=== PATIENT | male | born 1950 | race Caucasian/White ===

== ENCOUNTER 2024-03-23 18:57 | Inpatient (IN) | payer MEDICARE, OTHER, SELFPAY ==
[2024-03-23] VITALS (17 sets, daily range): BP systolic 107–168; BP diastolic 36–135; BMI 22.9; BMI 22.8
--- NOTE | 2024-03-23 17:04 | ED.GENMED ---
History of Present Illness
<Glo Briones MD, Resident - Last Filed: 03/23/24 17:54>
General
Chief Complaint: Cardiac Symptoms
Time Seen by Provider: 03/23/24 16:25
History of Present Illness
History of Present Illness:
This is a 73-year-old man who presented to the ED from his PCP with an EKG reading of a second-degree heart block. The patient reports feeling weak and experiencing decreased strength since September, with a significant decline in the past month he
mentioned that he is unable to carry 4 gallons of water and ' feels winded' while climbing stairs. Heart rate in the ED is 36. Sinus bradycardia on exam. EKG in ED shows a second-degree heart block and lab work which is currently in process.
Patient is not on any beta-blockers. He has no history of hypertension, diabetes, hyperlipidemia, CAD, stroke. Patient also complains of claudication in both calves while climbing stairs ongoing for past month. He is only on Viagra for ED, no other
medications.
Past History
<Glo Briones MD, Resident - Last Filed: 03/23/24 17:54>
Past History
ED Past Medical History: None
ED Past Surgical History: Other (hernia repair)
Social History
Tobacco: Non-smoker
Alcohol: None
Drug: None
Personal:
Living: with family
Employment: Employed
Phy Exam
<Glo Briones MD, Resident - Last Filed: 03/23/24 17:54>
Physical Exam
Physical Exam:
73-year-old healthy male comfortably laying in bed, is conversant in no acute distress,
Cardiovascular Exam
Cardiovascular Exam: no gallop, no murmur and bradycardia
Pulmonary Exam
Pulmonary Exam: lungs clear
Gastrointestinal Exam
Gastrointestinal Exam: normal bowel sounds, non tender, soft and non distended
Neurological Exam
Neurological Exam: alert and oriented x3
Psychiatric Exam
Psychiatric Exam: normal mood/affect
Course
<Glo Briones MD, Resident - Last Filed: 03/23/24 17:54>
Orders/Labs/Results
Orders:
Orders
03/23/24 16:05
Electrocardiogram (*1) Urgent
Reason for Study: Chest Pain
EKG- Treatment ONCE
03/23/24 16:58
Complete Blood Count/No Diff Urgent
Comprehensive Metabolic Panel Urgent
Magnesium Urgent
TSH Reflex To Free T4 Urgent
Troponin I Urgent
03/24/24 06:00
Echo 2D MMode Color/Doppler IN AM
Reason for Study: Bradycardia
NPO
Allow oral meds: Yes
Allow clear liquids: No
NPO for procedure after (time): Possible PPM
Abnormal Lab Results
03/23/24
16:58
MPV 11.3 H fL
(7.4-10.4)
BUN 28 H mg/dl
(9-20)
03/23/24 16:58
03/23/24 16:58
Vital Signs
Initial and Last Documented VS:
Initial Vital Signs
Temp Pulse Resp BP Pulse Ox
98.7 F 42 16 168/69 97
03/23/24 16:17 03/23/24 16:17 03/23/24 16:17 03/23/24 16:17 03/23/24 16:17
Last Documented Vital Signs
Temp Pulse Resp BP Pulse Ox
98.7 F 35 17 158/70 98
03/23/24 16:17 03/23/24 17:30 03/23/24 17:30 03/23/24 17:30 03/23/24 17:30
<Jet Mcwilliams DO - Last Filed: 03/23/24 17:12>
Orders/Labs/Results
Orders:
Orders
03/23/24 16:05
Electrocardiogram (*1) Urgent
Reason for Study: Chest Pain
EKG- Treatment ONCE
03/23/24 16:58
Complete Blood Count/No Diff Urgent
Comprehensive Metabolic Panel Urgent
Magnesium Urgent
TSH Reflex To Free T4 Urgent
Troponin I Urgent
03/24/24 06:00
Echo 2D MMode Color/Doppler IN AM
Reason for Study: Bradycardia
NPO
Allow oral meds: Yes
Allow clear liquids: No
NPO for procedure after (time): Possible PPM
Abnormal Lab Results
03/23/24
16:58
MPV 11.3 H fL
(7.4-10.4)
BUN 28 H mg/dl
(9-20)
03/23/24 16:58
03/23/24 16:58
Vital Signs
Initial and Last Documented VS:
Initial Vital Signs
Temp Pulse Resp BP Pulse Ox
98.7 F 42 16 168/69 97
03/23/24 16:17 03/23/24 16:17 03/23/24 16:17 03/23/24 16:17 03/23/24 16:17
Last Documented Vital Signs
Temp Pulse Resp BP Pulse Ox
98.7 F 35 17 158/70 98
03/23/24 16:17 03/23/24 17:30 03/23/24 17:30 03/23/24 17:30 03/23/24 17:30
<Glo Briones MD, Resident - Last Filed: 03/23/24 17:54>
*Critical Care Note
Total Time (30-74mins, 75-104mins- exclusive of procedures): Not Applicable
<Glo Briones MD, Resident - Last Filed: 03/23/24 17:54>
Update Note
Update Note:
This is a 73-year-old man who presented to the ED from his PCP with an EKG reading of a second-degree heart block
EKG 03/23/24: SINUS RHYTHM WITH 2ND DEGREE A-V BLOCK WITH 2:1 A-V CONDUCTION
LEFT AXIS DEVIATION. NON-SPECIFIC INTRA-VENTRICULAR CONDUCTION BLOCK
- EKG reviewed myself, constant VA prolongation which states Mobitz type 1 of second degree heart block. Cardiology consulted. Plan is to admit the patient for further workup including an echocardiogram and possible pacemaker placement.
Patient is comfortably lying in bed. He denies any chest pain, shortness of breath.
Heart rate between 35-37. Sinus bradycardia on auscultation.
Defer plan to cardiology
ED Attending Note
<Glo Briones MD, Resident - Last Filed: 03/23/24 17:54>
-
Portions of this chart may have been created with voice recognition software.� Occasional wrong word or��sound alike� substitutions may have occurred due to the inherent limitations of voice recognition software.
<Jet Mcwilliams, DO - Last Filed: 03/23/24 17:12>
ED Attending Note
Patient seen and examined by attending physician: Yes
I performed a history and physical exam of patient and discussed management with resident, I reviewed resident's note and agree with documented findings and plan of care.: Yes
ED Attending Note:
I have seen and evaluated the patient with a [id number] encounter. I have spoken to the resident and involved in the medical history, the physical exam, medical decision making.
Evaluation and management service: agree unless noted differently below.
Results interpretation: agree unless noted differently below.
Focused HPI: 73-year-old male presenting with increased exertion over the past several weeks. He had outpatient follow-up with PCP today and screening EKG was concerning for bradycardia with AV block. Patient denies prior cardiac history
Physical exam: Sitting in bed comfortably. Bradycardic. No murmur
Medical Decision Making: EKG confirms AV block. Will discuss case with cardiology. Given exertional symptoms, will will likely admit. Will obtain basic blood work to rule out any sort of lab abnormalities as the cause. Patient is not on cardiac
medications.
Discharge Plan
Departure
Patient Disposition: Admit
Date of Disposition: 03/23/24
Time of Disposition: 17:53
Presentation/result/management discussed w/ accepting MD/DO: Hospitalist
Patient with high blood pressure during this ER visit?: No
Discharge Problem:
Heart block AV second degree
Prescriptions:
No Action
ascorbic acid (vitamin C) [Vitamin C] 500 MG tablet
1,000 mg PO DAILY
vitamin B complex 1 TAB tablet
1 tab PO DAILY
coenzyme Q10 [Co Q-10] 200 MG capsule
200 mg PO DAILY
cholecalciferol (vitamin D3) 2,000 UNITS tablet
10,000 units PO DAILY
omega 3-psn-zsf-fish oil [Fish Oil] 1,000 MG capsule
1,000 mg PO DAILY
oregano oil 1,500 mg Capsule
1,500 mg PO DAILY
Brain Boost Day
1 tab PO DAILY
Nitric Oxide
1 tab PO DAILY
Viagra
1 tab PO DAILYPRN PRN (Reason: ed)
Zinc Balance
1 tab PO DAILY
magnesium-potassium
1 tab PO DAILY
Referrals:
UNKNOWN - PT DOES,NOT KNOW [Family Provider] -
Interventions
Interventions:
*Risk Screen - Suicide Last Done: 03/23/24 16:17
*General Assessment Last Done: 03/23/24 16:17
*Neglect/Abuse Screening Last Done: 03/23/24 16:17
*ED COVID-19 Vaccine History Last Done: 03/23/24 16:17
ED- Pulmonary Assessment Last Done: 03/23/24 16:43
ED- Cardiac Assessment Last Done: 03/23/24 16:43
Discharge Date and Time
Print Language: KHMER
[2024-03-23 17:05] LABS: Hematocrit 42.5 % (39.0-52.0); Mean Corp Hgb Conc. 35.3 g/dL (33.0-37.0); Mean Corpuscular Hgb 29.8 pg (27.0-31.0); Mean Corpuscular Volume 84.3 fL (80.0-94.0); Mean Platelet Volume 11.3 fL (7.4-10.4); Platelet Count 245 10^3/uL (130-400); Red Blood Cell Count 5.04 10^6/uL (4.70-6.10); Red Cell Dist. Width 14.2 % (11.5-14.5); White Blood Cell Count 8.2 10^3/uL (4.8-10.8)
[2024-03-23 17:29] LABS: ALT (SGPT) 17 U/L (0-50); AST (SGOT) 26 U/L (17-59); Albumin 4.6 g/dl (3.5-5.0); Alkaline Phosphatase 58 U/L (38-126); Blood Urea Nitrogen 28 mg/dl (9-20); Carbon Dioxide 25 mmol/L (22-30); Chloride 106 mmol/L (98-107); Estimated Creatinine Clearance 54 ml/min; Glucose 88 mg/dl (70-99); Magnesium 2.3 mg/dl (1.6-2.3); Potassium 4.5 mmol/L (3.5-5.1); Sodium 140 mmol/L (135-145); Total Bilirubin 1.1 mg/dl (0.2-1.3); eGFR > 60.00
--- NOTE | 2024-03-23 17:29 | CON.CAR ---
Addendum entered and electronically signed by Francois Fitch MD 03/23/24 17:53:
I saw and examined the patient.
The CHEMICAL ENGINEERING TEACHER's note was reviewed and I agree with the note.
73-year-old male with history of bifascicular block who has had complaints of fatigue. He says he is been more fatigued since September and just felt like he had less strength but then over the last month he has had increased exertional fatigue
which is more noticeable on certain days than others. Sometimes he will feel fatigued after walking up a flight of stairs or walking uphill but does not feel tired with more usual activities like just walking around the house or walking to the
doctor's office. No syncope or near syncope. On evaluation of PCP noted to be severely bradycardic. In ER he is in 2-1 AV block initial ECG with heart rate of 40 bpm atrial rate of 80 bpm. Heart rates in the ER have ranged from 36-40. Patient's
blood pressure has been stable currently systolic blood pressure in the 150s and asymptomatic at rest. In addition to the above he says some exertional leg burning running occipital flight of stairs.
-Symptomatic bradycardia/2-1 second-degree AV block. Suspect patient's worsening exertional symptoms over this past month or related to bradycardia and chronotropic incompetence.
-Reviewed issues with patient and .
-Admit to IVU
-Echocardiogram
-Plan for pacemaker this admission
.
Fatigue. His recent worsening fatigue is right likely related to bradycardia however he has had some symptoms since September exact etiology unclear.
-Echo
-TSH
-Additional assessment by hospitalist
-Will see what residual symptoms he has after pacemaker implant.
.
Exertional leg symptoms. May represent claudication. Would eventually recommend arterial ultrasound of lower extremity
Original Note:
Consultation
Consultation Request
Date/Time Consultation Requested: 03/23/2024 17:00
Date/Time Consultation Performed: 03/23/2024 17:15
Requesting Provider: Dr. Glo Briones
Performing Provider: CARMELITA Zapata for Dr. Fitch
Reason for Consultation: Bradycardia
Medical History
-
Chief Complaint: Fatigue
History of Present Illness:
Aly Neumann is a 73-year-old male with prior episode of enterocolitis who presents with a chief complaint of fatigue. He was referred to the emergency department by his primary care provider. He endorses fatigue that has been worsening. It
initially started at least 1 month ago. Most specifically, he is reporting claudication while going up the steps. This does not occur all the time. Sometimes he can go up the steps without any issues other times he has profound weakness
throughout his body most specifically his legs. He is able to recover. He is not having any dizziness nor chest pain. At his PCP today, he was found to have severe bradycardia. He is not on any AV arin agents. EKG shows second-degree heart
block. During this consultation the patient's heart rate was in the 30s on telemetry and he was asymptomatic.
Past Medical History
Past Medical History: Other (Enterocolitis)
Past Surgical History: Orthopedic (Carpal tunnel) and Other (Hernia repair)
Social History
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
Alcohol: None
Drug: None
Personal:
Living: With Family
Employment: Retired ([place])
Family History
Family History: Reviewed & Not Pertinent
Allergies / Home Medications
Allergy/AdvReac Type Severity Reaction Status Date / Time
latex Allergy Intermediate Itching Verified 03/23/24 16:24
propoxyphene Allergy Nausea / Verified 03/23/24 16:24
[From Darvocet-N] Vomiting
acetaminophen [From Percocet] AdvReac Mild Nausea / Verified 03/23/24 16:24
Vomiting
oxycodone [From Percocet] AdvReac Mild Nausea / Verified 03/23/24 16:24
Vomiting
�Medication �Instructions �Recorded �Confirmed �Type
ascorbic acid (vitamin C) 500 mg 1,000 mg PO DAILY 02/13/20 07/16/24 History
tablet (Vitamin C)
cholecalciferol (vitamin D3) 50 10,000 units PO DAILY 10/21/19 03/23/24 History
mcg (2,000 unit) tablet
coenzyme Q10 200 mg capsule (Co 200 mg PO DAILY 10/21/19 03/23/24 History
Q-10)
omega 7-pqx-vil-fish oil 1,000 mg 1,000 mg PO DAILY 10/21/19 03/23/24 History
(120 mg-180 mg) capsule (Fish Oil)
vitamin B complex 1 tab PO DAILY 10/21/19 03/23/24 History
Brain Boost Day 1 tab PO DAILY 03/23/24 03/23/24 History
Nitric Oxide 1 tab PO DAILY 03/23/24 03/23/24 History
Viagra 1 tab PO DAILYPRN PRN ed 03/23/24 03/23/24 History
Zinc Balance 1 tab PO DAILY 03/23/24 03/23/24 History
magnesium-potassium 1 tab PO DAILY 03/23/24 03/23/24 History
oregano oil 1,500 mg capsule 1,500 mg PO DAILY 03/23/24 03/23/24 History
Review of Systems
-
History Source: Patient
All other systems: Negative unless noted
Constitutional: Fatigue
EENT: No Symptoms
Respiratory: No Symptoms
Cardiac: No Symptoms
Abdomen/GI: No Symptoms
: No Symptoms
Musculoskeletal: Muscle Pain
Skin: No Symptoms
Neurological: Weakness
Endocrine: No Symptoms
Hematologic/Lymphatic: No Symptoms
Physical Exam
Vital Signs
Temp Pulse Resp BP Pulse Ox
98.7 F 42 16 168/69 97
03/23/24 16:17 03/23/24 16:17 03/23/24 16:17 03/23/24 16:17 03/23/24 16:17
Lab Results
03/23/24 16:58
03/23/24 16:58
Physical Exam
General: Well Developed, Well Nourished, No Apparent Distress and Comfortable
HEENT: Normocephalic, Anicteric and Moist Mucous Membranes
Respiratory: Clear
Cardiac: S1/S2 and Regular Rhythm (Second-degree heart block)
Breast: Deferred by me
GI: Soft, Non Tender, Non Distended and Normal Bowel Sounds
Rectal: Deferred by Provider
Genito-urinary: No Costovertebral Tender
Musculoskeletal: No Clubbing, No Cyanosis and No Edema
Skin: Warm and Dry
Neuro: AO x 3
Hematologic/Lymphatic: No Lymphadenopathy
Psych: Calm
Impression / Plan
-
Second-degree heart block (2:1), symptomatic
-He is not on any AV arin agents
-Prior EKG from 2019 with bifascicular block
-Current symptom is weakness, denies dizziness
-Check TSH
-Echocardiogram
Claudication
Data Reviewed
-
EKG: Report Reviewed by me (Second-degree heart block, rate 40)
Labs: Labs Reviewed by me
Old Records: Reviewed
[2024-03-23 17:30] LABS: Troponin I < 0.012 ng/ml
[2024-03-23 18:00] LABS: TSH Reflex To Free T4 2.51 uIU/ml (0.47-4.68)
--- NOTE | 2024-03-23 18:47 | HPS.HSE ---
Family Physician
-
Family Physician: Isiah Lin
Chief Complaint
-
fatigue
History of Present Illness
73-year-old male with past medical history of bifascicular block presenting with fatigue ongoing for at least a month. He feels profound weakness throughout his body more specifically his legs sometimes when he goes up the stairs. He does note
bilateral burning in his cast when this happens at times. He denies any dizziness or chest pain or shortness of breath. Today at primary care physician office he was found to be bradycardic. He denies any history of bradycardia.
He denies any new medications.
Medical History
Past Medical History
Past Medical History: Reports Other ( bifascicular block)
Past Surgical History: Reports Other (Carpal tunnel surgery, double hernia repair)
Social History
Tobacco: Non-smoker
Alcohol: None
Drug: None
Family History
Family History: Not pertinent
Allergies / Home Medications
Allergies reflects when Allergies were last updated in [facility].
Home Medications with original date entered in [facility]
Allergy/Medication List:
Allergies
Allergy/AdvReac Type Severity Reaction Status Date / Time
latex Allergy Intermediate Itching Verified 03/23/24 16:24
propoxyphene Allergy Nausea / Verified 03/23/24 16:24
[From Darvocet-N] Vomiting
acetaminophen [From Percocet] AdvReac Mild Nausea / Verified 03/23/24 16:24
Vomiting
oxycodone [From Percocet] AdvReac Mild Nausea / Verified 03/23/24 16:24
Vomiting
Home Medications
ascorbic acid (vitamin C) 500 mg tablet (Vitamin C) 1,000 mg PO DAILY 10/21/19
cholecalciferol (vitamin D3) 50 mcg (2,000 unit) tablet 10,000 units PO DAILY 10/21/19
coenzyme Q10 200 mg capsule (Co Q-10) 200 mg PO DAILY 10/21/19
omega 8-tgn-cre-fish oil 1,000 mg (120 mg-180 mg) capsule (Fish Oil) 1,000 mg PO DAILY 10/21/19
vitamin B complex 1 tab PO DAILY 10/21/19
Brain Boost Day 1 tab PO DAILY 03/23/24
Nitric Oxide 1 tab PO DAILY 03/23/24
Viagra 1 tab PO DAILYPRN PRN ed 03/23/24
Zinc Balance 1 tab PO DAILY 03/23/24
magnesium-potassium 1 tab PO DAILY 03/23/24
oregano oil 1,500 mg capsule 1,500 mg PO DAILY 03/23/24
Review of Systems
-
History Source: Patient
A 12 point ROS was completed and negative except as noted: Yes
Constitutional: Reports No Symptoms
EENT: Reports No Symptoms
Respiratory: Reports See HPI
Cardiac: Reports See HPI
Abdomen/GI: Reports No Symptoms
: Reports No Symptoms
Musculoskeletal: Reports No Symptoms
Skin: Reports No Symptoms
Neurological: Reports See HPI
Endocrine: Reports No Symptoms
Hematologic/Lymphatic: Reports No Symptoms
Psych: Reports No Symptoms
Physical Exam
Vital Signs
Vital Signs
Temp Pulse Resp BP Pulse Ox
98.7 F 32 9 158/135 95
03/23/24 16:17 03/23/24 18:00 03/23/24 18:00 03/23/24 18:00 03/23/24 18:00
Physical Exam
General: Well Developed, Well Nourished and No Apparent Distress
HEENT: NormoCephalic, Moist mucous membranes and Atraumatic
Respiratory: Clear
Cardiac: S1/S2 and Bradycardia; No Murmur or Rub
GI: Soft, Non Tender, Non Distended and Normal Bowel Sounds; No Organomegaly
Rectal: Deferred by Provider
Musculoskeletal: No Clubbing, No Cyanosis and No Edema
Skin: No Rash
Neuro: Nonfocal/grossly intact
Laboratory Results
-
03/23/24 16:58
03/23/24 16:58
Laboratory Results
Total Bilirubin 1.1 mg/dl (0.2-1.3) 03/23/24 16:58
AST 26 U/L (17-59) 03/23/24 16:58
ALT 17 U/L (0-50) 03/23/24 16:58
Alkaline Phosphatase 58 U/L (38-126) 03/23/24 16:58
Troponin I < 0.012 ng/ml 03/23/24 16:58
Data Reviewed
-
Lab Data: Labs Reviewed by me
Old Records: Reviewed
Impression/Plan
-
IMPRESSION:
PLAN:
# Fatigue likely secondary to second-degree AV block with 2:1 AV conduction
-TSH, echo pending
-Plan for pacemaker this admission
-N.p.o. past midnight
-Cardiology following
-Bilateral calf burning could be related to the AV block, however if does not resolve with pacemaker may need vascular evaluation for intermittent claudication
History of bifascicular block
Full code
DVT prophylaxis heparin
Regular diet
--- NOTE | 2024-03-23 20:25 | PTCARENOTE ---
Patient received from ED. Pt. AOx3. Tele showing 2nd degree AV block, HR in the 30s, BP 159/93. No complaints of dizziness or pain. Continuing to monitor the patient.
[2024-03-24] VITALS (10 sets, daily range): BP systolic 118–160; BP diastolic 49–86; BMI 22.6
--- NOTE | 2024-03-24 02:56 | DOWNTIME ---
There was a [employer] Client Blow Off Worker Downtime on 03/24/2024 from 0100 to 03/24/2024 at 0255. Downtime documentation of patient's care, including medication administrations, has been reconciled in the electronic record per guidelines. Refer to the
patient's paper chart under the miscellaneous tab to see printed paper medication records and downtime forms.
[2024-03-24 05:15] LABS: % Basophils 0.6 % (0-2); % Eosinophils 4.3 % (0-6); % Immature Granulocytes 0.3 % (0-0.5); % Lymphocytes 22.3 % (20.5-51.1); % Monocytes 13.3 % (1.7-9.3); % Neutrophils 59.2 % (42.2-75.2); Absolute Basophils 0.1 10^3/uL (0-0.2); Absolute Eosinophils 0.3 10^3/uL (0-0.7); Absolute Lymphocytes 1.8 10^3/uL (1.2-3.4); Absolute Monocytes 1.1 10^3/uL (0.1-0.6); Absolute Neutrophils 4.7 10^3/uL (1.4-6.5); Hematocrit 42.6 % (39.0-52.0); Mean Corp Hgb Conc. 35.2 g/dL (33.0-37.0); Mean Corpuscular Hgb 29.8 pg (27.0-31.0); Mean Corpuscular Volume 84.7 fL (80.0-94.0); Mean Platelet Volume 11.1 fL (7.4-10.4); Nucleated Red Blood Cells % 0 % (-); Platelet Count 219 10^3/uL (130-400); Red Blood Cell Count 5.03 10^6/uL (4.70-6.10); Red Cell Dist. Width 14.1 % (11.5-14.5); White Blood Cell Count 7.9 10^3/uL (4.8-10.8)
[2024-03-24 05:49] LABS: ALT (SGPT) 16 U/L (0-50); AST (SGOT) 23 U/L (17-59); Albumin 4.2 g/dl (3.5-5.0); Alkaline Phosphatase 54 U/L (38-126); Blood Urea Nitrogen 30 mg/dl (9-20); Calcium 9.7 mg/dl (8.4-10.2); Carbon Dioxide 23 mmol/L (22-30); Chloride 107 mmol/L (98-107); Estimated Creatinine Clearance 49 ml/min; Glucose 91 mg/dl (70-99); Potassium 4.3 mmol/L (3.5-5.1); Sodium 140 mmol/L (135-145); Total Bilirubin 0.9 mg/dl (0.2-1.3); Total Protein 6.6 g/dl (6.3-8.2); eGFR 57.65
--- NOTE | 2024-03-24 08:43 | W.PN.CD ---
Today's Communication / Plan
-
NPO
ECHO
Planning for pacemaker . Timing being assessed by EP
Impression / Plan
-
Second-degree heart block (2:1), symptomatic
- remains with HR in 30s. Toleratign well. No long pauses . On some strips clearly Mobitz II
-Mobitz II
-Prior EKG from 2019 with bifascicular block
-fatigue and exertional symptoms prior to admit.
-Echocardiogram today
- plan for PPM
- timing being reviewed with EP
leg pain. sounds like claudication. evnetual leg US
Physical Exam
Vital Signs/Labs
Vital Signs
Temp Pulse Resp BP Pulse Ox
98.2 F 45 18 134/58 97
03/24/24 07:19 03/24/24 08:00 03/24/24 07:19 03/24/24 07:22 03/24/24 07:19
03/23/24 03/24/24 03/25/24
06:59 06:59 06:59
Actual Weight 69.9 kg 69.4 kg
03/24/24 04:52
03/24/24 04:52
Magnesium 2.3 mg/dl (1.6-2.3) 03/23/24 16:58
LAB Results
03/23/24
16:58
Troponin I < 0.012
Physical Exam
Constitutional: No acute distress
Cardiovascular: Rhythm & rate is regular
GI: Soft
Neuro/Psych: Alert
Data Reviewed
-
Date of Service: March 24, 2024
Medical Decision Making: Reviewed Test Results
Medical Tests (PFT, Pathology etc): Report Reviewed by me
Labs: Labs Reviewed by me
--- NOTE | 2024-03-24 09:41 | W.PN.HOSP.TC ---
Today's Communication/Plan
-
pending echo, pacemaker
Assessment / Plan
Assessment / Plan
# Fatigue-likely secondary to second-degree AV block with 2:1 AV conduction
-TSH WNL
echo pending
-Plan for pacemaker per cardio
-N.p.o. past midnight
-Cardiology input appreciated
-History of bifascicular block
-check Lyme
#Bilateral calf burning- caludication
- if does not resolve with pacemaker may need vascular evaluation for intermittent claudication
Full code
DVT prophylaxis heparin
Regular diet
Anticipated Discharge: 24 - 48 hours
Subjective/Interval History
-
Date of Service: March 24, 2024
Objective Data
-
Labs:
Laboratory Results
03/24/24
04:52
WBC 7.9
Hgb 15.0
Hct 42.6
Plt Count 219
Sodium 140
Potassium 4.3
Chloride 107
Carbon Dioxide 23
BUN 30 H
Creatinine 1.3
Glucose 91
Calcium 9.7
Total Bilirubin 0.9
AST 23
ALT 16
Alkaline Phosphatase 54
Vital Signs:
Vital Signs
Temp Pulse Resp BP Pulse Ox
98.2 F 45 18 134/58 97
03/24/24 07:19 03/24/24 08:00 03/24/24 07:19 03/24/24 07:22 03/24/24 09:05
I&O
03/23/24 03/24/24 03/25/24
06:59 06:59 06:59
Intake Total 150 / 150
Balance 150 / 150
Review of Systems
-
History Source: Patient
Constitutional: Denies Fever
Respiratory: Denies Cough
Cardiac: Denies Chest Pain
Abdomen/GI: Denies Abdominal Pain
Musculoskeletal: Denies Joint Pain
Neuro: Denies Dizzy
Hematologic / Lymphatic: Denies Bleeding
Physical Exam
-
General: Well Developed and Well Nourished
HEENT: Normocephalic and Atraumatic
Respiratory: Clear to Auscultation
Cardiac: Regular Rhythm, S1/S2 and Bradycardic
GI: Soft
Skin: Warm and Dry
Neuro: Awake, Alert and Oriented
Psych: Calm
Data Reviewed
-
Labs: Labs Reviewed by me, Discussed with Physician and Discussed with Patient
--- NOTE | 2024-03-24 10:03 | ITS.CL.PACE ---
[employer] Specialist - Pacemaker Implant
Pacemaker Implant
Procedure Report:
PACEMAKER IMPLANT REPORT
Primary Care Provider: Dr. Isiah Lin
Primary White Washer: Dr. Francois Fitch
Date of Procedure: March 24, 2024
Procedure:
1: Implantation of dual-chamber permanent pacemaker utilizing the left bundle branch for conduction system pacing
Indication/Diagnosis:
1: Non-reversible symptomatic bradycardia due to symptomatic type II second atrioventricular block
HISTORY: The patient is a 73-year-old man who presents with symptomatic bradycardia and 2-1 second-degree type II AV block and is referred for pacemaker placement.
Antibiotic: Ancef 2 g IV
Sedation: Conscious sedation per anesthesia staff
After informed consent was obtained, 'time out' was called and confirmed, the patient was prepped and draped in a sterile fashion. Lidocaine with epi was used for local anesthesia. Central venous access was obtained via subclavian venipuncture. An
incision was made along the left chest and a pre-pectoral pocket was formed. Using a Seldinger technique and peel-away sheaths, the pacing leads were placed under fluoroscopic guidance. Fluoroscopy was used to determine likely anatomic site for
left bundle branch pacing. The Medtronic C315 sheath was used to deliver the Medtronic 3830 Selectsecure pacing lead with the helix exposed just exposed from the sheath tip during continuous monitoring when pacemapping the septum during gentle
clockwise rotation to obtain a paced QRS morphology of a W pattern in lead V1. Once the suspected optimal site was identified, lead deployment was performed with several rapid rotations as paced QRS morphology was intermittently monitored until a
paced QRS complex in lead V1 demonstrated development of an R wave (qR or rSR). Stable VEGM injury current is present throughout lead position and at end of case.
Final unipolar pacing impedance is 920 Ohms
Unipolar pacing threshold is stable at 0.75 V @ 0.4 ms.
Final conduction system paced QRS complex duration is 113 ms
LVAT is 60 ms and peak V5 -> peak V1 timing is 60 ms
Right atrial lead was placed at the RAA.
Once testing (see below) showed adequate and stable function, the leads were secured using the suture sleeves. The pocket was liberally irrigated with antibiotic solution. The leads were connected to the generator header and the leads and
generator were placed within the pocket. Fluoroscopy confirmed stable lead position. The pocket was closed in the typical fashion.
Fluoroscopy Time (min): 15.1
Radiation Dose (mGy): 31
DAP (Gy.cm2): 3.4
IMPLANTS:
Medtronic [id number], SN: [id number], Left Pectoral
RA: Medtronic 5076-52, SN: [id number], RAA
RV: Medtronic 3830 , SN:[id number], Interventricular septum at LBB
DEVICE TESTING:
Sensing: RA 2.0 mV, RV 17 mV
Capture: RA 0.8 V@0.4ms, RV 0.75 V@0.4ms
Ohms: RA 640 , RV 920
FINAL PROGRAMMING
Meño Pacing: AAIR+ 60-130 ppm
COMPLICATIONS: None
CONCLUSIONS:
1: Successful implant of dual chamber permanent pacemaker utilizing Left Bundle Branch conduction system capture for pacing. Overall findings are most consistent with LBB capure. Note that both LBB capture and Left Ventricular Septal capture has
been associated with improved left ventricular systolic function via cardiac resynchronization.
RECOMMENDATIONS:
1. Post-op care (tele, CXR, IV abx)
2. In-Office wound check in 5-7 days
Copy to: Dr. Isiah Lin
--- NOTE | 2024-03-24 13:20 | CM ---
Chart reviewed. Patient is independent of ADLS, lives with his in a 2 [address], 2 [facility]A, 0 DME. Patient waiting for a PPM. Plan is for the patient to return home. CM to follow
[2024-03-24 15:07] LABS: Lyme Antibody Screen, EIA Negative (Negative)
--- NOTE | 2024-03-24 18:39 | PTCARENOTE ---
Pt had pacemaker placed in left anterior chest, dressing intact with scant drainage, no sign of bleeding or hematoma. pt denies any discomfort. Activity restrictions and pacemaker function reviewed with pt and his who state good understanding.
Chest Xray done in Dept. Pt OOB independently, voiding without problem. Telemetry shows V paced rhythm.
[2024-03-24] MEDS: ANCEF 5 IV (19:14)
--- NOTE | 2024-03-24 19:21 | PTCARENOTE ---
Pt. received at change of shift. Pt. seen and assessed. Pacemaker site covered with steri strips and gauze. No complaints at this time. Tele showing vpaced with a rate of 60. BP stable. Continuing to monitor the pt.
[2024-03-24] MEDS: TYLENOL 650 MG PO (22:49)
[2024-03-25 03:03] VITALS: BP 149/75
[2024-03-25] MEDS: ANCEF 5 IV (03:04)
[2024-03-25 03:05] VITALS: BMI 22.8
--- NOTE | 2024-03-25 04:03 | PTCARENOTE ---
Pt. awake in room. AOx3. Pacemaker site c/d/i with steri strips and gauze. No complaints of pain at site. VS WNL. Blood work completed. Awaiting results. Continuing to monitor the patient.
[2024-03-25 04:07] LABS: Hematocrit 45.2 % (39.0-52.0); Hemoglobin 15.8 g/dL (13.0-18.0); Mean Corpuscular Hgb 30.3 pg (27.0-31.0); Mean Corpuscular Volume 86.6 fL (80.0-94.0); Mean Platelet Volume 11.1 fL (7.4-10.4); Platelet Count 190 10^3/uL (130-400); Red Blood Cell Count 5.22 10^6/uL (4.70-6.10); Red Cell Dist. Width 13.9 % (11.5-14.5); White Blood Cell Count 9.5 10^3/uL (4.8-10.8)
[2024-03-25 04:29] LABS: Blood Urea Nitrogen 26 mg/dl (9-20); Calcium 9.6 mg/dl (8.4-10.2); Carbon Dioxide 24 mmol/L (22-30); Chloride 105 mmol/L (98-107); Estimated Creatinine Clearance 58 ml/min; Glucose 92 mg/dl (70-99); Magnesium 2.1 mg/dl (1.6-2.3); Potassium 4.4 mmol/L (3.5-5.1); Sodium 138 mmol/L (135-145); eGFR > 60.00
--- NOTE | 2024-03-25 07:23 | W.PN.HOSP.TC ---
Addendum entered and electronically signed by Darrick Hidalgo MD 03/25/24 13:03:
73-year-old male presented to the hospital with fatigue going on for a month
CVS: S1-S2 pat
Chest: CTA B/L
Abdomen: Soft, NT / Bowel sounds present
Extremities: No edema, normal pulses
# Fatigue likely secondary to symptomatic second-degree AV block with 2-1 conduction
Status post pacemaker placement
Normal TSH
Lyme negative
Echo-03/24/2024-bradycardia and second-degree AV block normal LV size. Ejection fraction 55 to 60%
# Bilateral burning sensation in the calf-patient does not have any more. Aware that he needs to follow-up with PCP if he were to get it again.
# DVT prophylaxis-heparin
# Full code
D/W Cards
D/w Family at bed side
Follow-up care discussed
Original Note:
Today's Communication/Plan
-
d/c plan defer to cardio
Assessment / Plan
Assessment / Plan
# Fatigue-likely secondary to second-degree AV block with 2:1 AV conduction
- TSH WNL
- Echo confimed Bradycardia and second-degree AV block, LV EF 55-60%
- 03/24/24 Successful implant of dual chamber permanent pacemaker utilizing Left Bundle Branch conduction system capture for pacing
- Started on regular diet
- Cardiology input appreciated
- History of bifascicular block
- Lyme- negative
#Bilateral calf burning- caludication
-reports it happens 1/10 times
- if no improvement with pacemaker may need vascular evaluation for intermittent claudication
Full code
DVT prophylaxis heparin
Regular diet
Anticipated Discharge: Within 24 hours
Subjective/Interval History
-
Date of Service: March 25, 2024
Objective Data
-
Labs:
Laboratory Results
03/25/24
03:16
WBC 9.5
Hgb 15.8
Hct 45.2
Plt Count 190
Sodium 138
Potassium 4.4
Chloride 105
Carbon Dioxide 24
BUN 26 H
Creatinine 1.1
Glucose 92
Calcium 9.6
Vital Signs:
Vital Signs
Temp Pulse Resp BP Pulse Ox
98.2 F 69 20 149/75 95
03/25/24 03:05 03/25/24 03:03 03/25/24 03:05 03/25/24 03:03 03/25/24 03:05
I&O
03/24/24 03/25/24 03/26/24
06:59 06:59 06:59
Intake Total 150 / 150 100 / 100
Balance 150 / 150 100 / 100
Review of Systems
-
History Source: Patient
Constitutional: Denies Fever
Respiratory: Denies Cough
Cardiac: Denies Chest Pain
Abdomen/GI: Denies Abdominal Pain
Neuro: Denies Dizzy
Endocrine: Denies Polyuria
Physical Exam
-
General: Well Developed, Well Nourished and No Apparent Distress
HEENT: Normocephalic and Atraumatic
Respiratory: Clear to Auscultation
Cardiac: Regular Rhythm
GI: Soft and Nontender
Skin: Warm and Dry
Neuro: Awake, Alert and Oriented
Psych: Calm
Data Reviewed
-
Labs: Labs Reviewed by me, Discussed with Physician and Discussed with Patient
[2024-03-25 07:28] VITALS: BP 136/70
--- NOTE | 2024-03-25 09:54 | W.PN.CD ---
Today's Communication / Plan
-
- Stable for discharge.
- Wound check in 1-2 weeks.
- No driving fro 24 hours.
- Device clinic follow up.
Impression / Plan
-
Second-degree heart block (2:1), symptomatic
-Mobitz II and symptomatic
-s/p dual chamber PPM - Medtronic by Dr Davide Rodriguez on 03/24/24
-Echocardiogram 03/24/24 - LVEF 60%
leg pain. sounds like claudication. improved with normal pressure and food heart rate.
Physical Exam
Vital Signs/Labs
Vital Signs
Temp Pulse Resp BP Pulse Ox
97.9 F 62 18 136/70 95
03/25/24 07:29 03/25/24 07:30 03/25/24 07:29 03/25/24 07:28 03/25/24 07:38
03/24/24 03/25/24 03/26/24
06:59 06:59 06:59
Actual Weight 69.9 kg 70 kg
03/25/24 03:16
03/25/24 03:16
Magnesium 2.1 mg/dl (1.6-2.3) 03/25/24 03:16
LAB Results
03/23/24
16:58
Troponin I < 0.012
Physical Exam
Constitutional: No acute distress and Comfortable
EENT: Anicteric and Moist mucous membranes
Cardiovascular: Rhythm & rate is regular, Pedal edema is absent and JVD pressure is normal
Respiratory: Respiratory effort normal, Lungs clear to auscul. and Wheeze Absent
GI: Soft, Non tender and Normal bowel sounds
Neuro/Psych: Alert, Oriented and AO x 3
Other: Cardiac Device Site
Data Reviewed
-
Date of Service: March 25, 2024
Medical Decision Making: Reviewed Test Results, Independent Historian Assessment and Test Interpretation
EKG: Tracing Personally Visualized and interpreted
Echo: Report Reviewed by me
X-Ray/CT/US/MRI/NUC/PET: Image Personally Visualized and interpreted
Labs: Labs Reviewed by me
Old Records: Reviewed
--- NOTE | 2024-03-25 11:21 | W.DCSUMMARY ---
Documented by User: Allen Perez MD, Resident 03/25/24 16:53
Discharge Summary
Discharge Data
Date of Admission: 03/23/24
Date of Discharge: 03/25/24
-
Pending Results: No
Hospital Course
Discharging Physician : Allen Perez MD ; Darrick Hidalgo MD
Disposition : Home
Primary care physician : Isiah Lin
Principal Discharge diagnosis : Fatigue/weakness likely secondary to symptomatic second-degree AV block with 2�1 conduction
Chronic Discharge diagnosis : Erectile dysfunction
Hospital Course : 73-year-old male presented to the ED per recommendations from family doctor for evaluation of fatigue/weakness and bradycardia. EKG in the ED shows second-degree heart block. Patient denied history of hypertension,
hyperlipidemia, diabetes and use of an heart medications. Additional blood work including troponin, Lyme screening, CBC and CMP was done. The blood work results were within normal limits. Cardiology was consulted for further evaluation.
Echocardiogram shows bradycardia and second-degree AV block during the study LV ejection fraction was 55 to 60%. Cardiology planned pacemaker placement and proceeded on 03/24. He received 2 bags of Ancef after the procedure. Chest x-ray was
performed after the procedure which confirmed left-sided dual-lead cardiac pacemaker placement. No pneumothorax. No evidence of pneumonia. He was cleared by cardiology for discharge and advised to follow-up in 1 to 2 weeks for wound check. He
was advised to not drive in the next 24 hours. He verified understanding
Important imaging findings : X-ray s/p implant: Left-sided dual-lead cardiac pacemaker has been placed. Lead tip positions in the region overlying the right atrium and right ventricle. No pneumothorax. No congestive heart failure. No evidence of
pneumonia.
Procedure findings : ECHO: Bradycardia and second-degree AV block during study
normal left ventricular size, wall thickness and systolic function.
LV ejection fraction is 55-60%.
No significant valve abnormalities
Compared to the previous echo there is no significant change.
Pacemaker implant: Successful implant of dual chamber permanent pacemaker utilizing Left Bundle Branch conduction system capture for pacing. Overall findings are most consistent with LBB capure. Note that both LBB capture and Left Ventricular
Septal capture has been associated with improved left ventricular systolic function via cardiac resynchronization.
Discharge Plan
-
Patient Disposition: Home (Routine Discharge)
Discharge Diagnosis/Procedures: Mobitz type II heart block, symptomatic Bradycardia s/p Pacemaker implant,
Condition: Good
Diet: No restrictions
Activity: As tolerated
Driving Restrictions: No driving for 1 week
Bathing Restrictions: OK to Shower
Stand Alone Forms: [facility] - Implanted Device
Referrals:
[facility]- [facility] [Provider Group] - 03/31/24 3:00 pm (Incision check appointment)
Isiah Lin MD [Family Provider] - in one to two months
Prescriptions:
Continued
ascorbic acid (vitamin C) [Vitamin C] 500 MG tablet
1,000 mg PO DAILY
vitamin B complex 1 TAB tablet
1 tab PO DAILY
coenzyme Q10 [Co Q-10] 200 MG capsule
200 mg PO DAILY
cholecalciferol (vitamin D3) 2,000 UNITS tablet
10,000 units PO DAILY
omega 4-fhn-pxg-fish oil [Fish Oil] 1,000 MG capsule
1,000 mg PO DAILY
oregano oil 1,500 mg Capsule
1,500 mg PO DAILY
Brain Boost Day
1 tab PO DAILY
Nitric Oxide
1 tab PO DAILY
Viagra
1 tab PO DAILYPRN PRN (Reason: ed)
Zinc Balance
1 tab PO DAILY
magnesium-potassium
1 tab PO DAILY
Discharge Orders:
Discharge Patient (As Directed); Ordered 03/25/24
Ordered By: Allen Perez
Care Plan Goals
Care Plan Goals:
Problem: Readiness for enhanced knowledge related to diagnosis and treatment plan
Goal: Understand your diagnosis and treatment plan needs, including medications if applicable.
Instructions: Know your diagnosis, underlying causes and treatment plan options, including medications if applicable. Consult with your health care team to learn about your diagnosis and treatment plan, including medications if applicable.
Discharge Date and Time
Discharge Date/Time: 03/25/24 12:50
Print Language: NAURUAN

Documented by User: Darrick Hidalgo MD 03/29/24 09:26
Discharge Summary
Discharge Data
Date of Admission: 03/23/24
Date of Discharge: 03/29/24
Hospital Course
Discharging Physician : Allen Perez MD ; Darrick Hidalgo MD
Disposition : Home
Primary care physician : Isiah Lin
Principal Discharge diagnosis : Fatigue/weakness likely secondary to symptomatic second-degree AV block with 2�1 conduction
Hospital Course : 73-year-old male presented to the ED per recommendations from family doctor for evaluation of fatigue/weakness and bradycardia. EKG in the ED shows second-degree heart block. Patient denied history of hypertension,
hyperlipidemia, diabetes and use of an heart medications. Additional blood work including troponin, Lyme screening, CBC and CMP was done. The blood work results were within normal limits. Cardiology was consulted for further evaluation.
Echocardiogram shows bradycardia and second-degree AV block during the study LV ejection fraction was 55 to 60%. Cardiology planned pacemaker placement and proceeded on 03/24. He received 2 bags of Ancef after the procedure. Chest x-ray was
performed after the procedure which confirmed left-sided dual-lead cardiac pacemaker placement. No pneumothorax. No evidence of pneumonia. He was cleared by cardiology for discharge and advised to follow-up in 1 to 2 weeks for wound check. He
was advised to not drive in the next 24 hours. He verified understanding
Important imaging findings : X-ray s/p implant: Left-sided dual-lead cardiac pacemaker has been placed. Lead tip positions in the region overlying the right atrium and right ventricle. No pneumothorax. No congestive heart failure. No evidence of
pneumonia.
Procedure findings : ECHO: Bradycardia and second-degree AV block during study
normal left ventricular size, wall thickness and systolic function.
LV ejection fraction is 55-60%.
No significant valve abnormalities
Compared to the previous echo there is no significant change.
Pacemaker implant: Successful implant of dual chamber permanent pacemaker utilizing Left Bundle Branch conduction system capture for pacing. Overall findings are most consistent with LBB capure. Note that both LBB capture and Left Ventricular
Septal capture has been associated with improved left ventricular systolic function via cardiac resynchronization.
Discharge Plan
-
Patient Disposition: Home (Routine Discharge)
Discharge Diagnosis/Procedures: Mobitz type II heart block, symptomatic Bradycardia s/p Pacemaker implant,
Condition: Good
Diet: No restrictions
Activity: As tolerated
Driving Restrictions: No driving for 1 week
Bathing Restrictions: OK to Shower
Stand Alone Forms: [facility] - Implanted Device
Referrals:
[facility]- [facility] [Provider Group] - 03/31/24 3:00 pm (Incision check appointment)
Isiah Lin MD [Family Provider] - in one to two months
Prescriptions:
Continued
ascorbic acid (vitamin C) [Vitamin C] 500 MG tablet
1,000 mg PO DAILY
vitamin B complex 1 TAB tablet
1 tab PO DAILY
coenzyme Q10 [Co Q-10] 200 MG capsule
200 mg PO DAILY
cholecalciferol (vitamin D3) 2,000 UNITS tablet
10,000 units PO DAILY
omega 4-lyc-kpt-fish oil [Fish Oil] 1,000 MG capsule
1,000 mg PO DAILY
oregano oil 1,500 mg Capsule
1,500 mg PO DAILY
Brain Boost Day
1 tab PO DAILY
Nitric Oxide
1 tab PO DAILY
Viagra
1 tab PO DAILYPRN PRN (Reason: ed)
Zinc Balance
1 tab PO DAILY
magnesium-potassium
1 tab PO DAILY
Discharge Orders:
Discharge Patient (As Directed); Ordered 03/25/24
Ordered By: Allen Perez
Care Plan Goals
Care Plan Goals:
Problem: Readiness for enhanced knowledge related to diagnosis and treatment plan
Goal: Understand your diagnosis and treatment plan needs, including medications if applicable.
Instructions: Know your diagnosis, underlying causes and treatment plan options, including medications if applicable. Consult with your health care team to learn about your diagnosis and treatment plan, including medications if applicable.
Discharge Date and Time
Discharge Date/Time: 03/25/24 12:50
Print Language: NAURUAN
[2024-03-25 11:30] VITALS: BP 116/78
--- NOTE | 2024-03-25 13:19 | PTCARENOTE ---
Pt c/o mild left shoulder ache. pt up walking in halls, telemtry shows 100% AV paced rhythm. Pt seen by Dr. Mendoza. Telemetry and IV device removed. Discharge instructions reviewed with pt regarding activity and driving restrictions, wound care,
pain management, medications, reporting cares and concerns and follow up appt's. Very good understanding verbalized. Pt escorted out via wheelchair and pt discharged to home.
== END 2024-03-25 12:50 | disposition home or self-care (01) | DRG 244 ==
LOC: IVU 18:57
PROVIDERS: Internal Medicine Interventional Cardiology; Nurse Practitioner Adult Health; Student in an Organized Health Care Education/Training Program; ADMITTING PHYSICIAN Hospitalist; ATTENDING PHYSICIAN Hospitalist; CONSULT PHYSICIAN Internal Medicine Cardiovascular Disease; EMERGENCY PHYSICIAN Student in an Organized Health Care Education/Training Program; FAMILY PHYSICIAN Internal Medicine
PROC: 0JH606Z Insertion of Pacemaker, Dual Chamber into Chest Subcutaneous Tissue and Fascia, Open Approach (ICD-10-PCS; 2024-03-24)
PROC: 02H63JZ Insertion of Pacemaker Lead into Right Atrium, Percutaneous Approach (ICD-10-PCS; 2024-03-24)
PROC: 02HK3JZ Insertion of Pacemaker Lead into Right Ventricle, Percutaneous Approach (ICD-10-PCS; 2024-03-24)
DX: I44.1 Atrioventricular block, second degree (principal); I73.9 Peripheral vascular disease, unspecified; N52.9 Male erectile dysfunction, unspecified; Z88.5 Allergy status to narcotic agent; Z91.040 Latex allergy status; Z86.79 Personal history of other diseases of the circulatory system
CPT/HCPCS: 33208; 71045; 80048; 80053; 83735; 84443; 84484; 85025; 85027; 86618; 93005; 93306; 99285; C1769; C1785; C1887; C1892; C1898

== ENCOUNTER → 2024-12-14 11:18 | Outpatient (REF) | payer MEDICARE, OTHER, SELFPAY | LOC: HWRCS 11:18 | PROVIDERS: ATTENDING PHYSICIAN Internal Medicine Cardiovascular Disease; FAMILY PHYSICIAN Internal Medicine | DX: I44.2 Atrioventricular block, complete (principal) | CPT/HCPCS: 93306 ==

== ENCOUNTER → 2025-06-22 10:18 | Outpatient (REF) | payer MEDICARE, OTHER, SELFPAY | LOC: RCS 10:18 | PROVIDERS: ATTENDING PHYSICIAN Internal Medicine Cardiovascular Disease; FAMILY PHYSICIAN Internal Medicine | DX: I44.2 Atrioventricular block, complete (principal) | CPT/HCPCS: 93306 ==

== ENCOUNTER → 2025-08-23 08:46 | Outpatient (REF) | payer MEDICARE, OTHER, SELFPAY | LOC: RAD 08:46 | PROVIDERS: ATTENDING PHYSICIAN Internal Medicine Interventional Cardiology; FAMILY PHYSICIAN Internal Medicine | DX: R09.89 Other specified symptoms and signs involving the circulatory and respiratory systems (principal) | CPT/HCPCS: 93880 ==

== ENCOUNTER → 2025-08-24 07:52 | Outpatient (REF) | payer MEDICARE, OTHER, SELFPAY | LOC: HWRCS 07:52 | PROVIDERS: ATTENDING PHYSICIAN Internal Medicine Interventional Cardiology; FAMILY PHYSICIAN Internal Medicine | DX: R06.09 Other forms of dyspnea (principal) | CPT/HCPCS: 78452; 93017; A9500; J2785 ==